=== PATIENT | male | born 1995 | race Two or more races ===

== ENCOUNTER 2023-11-18 10:21 | Emergency (ER) | payer MEDICAID ==
[~2023-11-18] VITALS: Ht 182.9 cm; Wt 123.8 kg
[2023-11-18 11:12] VITALS: BP 143/83; PULSE 91; RESP 18; TEMP 98; O2SAT 95
[2023-11-18] MEDS: KETOROLAC TROMETH 60MG/2ML VIAL IM ONE (11:28)
[2023-11-18] MEDS ORDERED: METH-1182 PO (11:46)
== END 2023-11-18 12:02 | disposition home or self-care (01) ==
LOC: ER 10:21
DX: S29.011A Strain of muscle and tendon of front wall of thorax, initial encounter (principal); I10 Essential (primary) hypertension; Z79.899 Other long term (current) drug therapy; W18.39XA Other fall on same level, initial encounter; Y93.89 Activity, other specified; Y92.89 Other specified places as the place of occurrence of the external cause; Y99.8 Other external cause status
CPT/HCPCS: 71101; 96372; 99283; J1885